=== PATIENT | female | born 1960 | race Caucasian/White ===

== ENCOUNTER → 2016-05-09 15:32 | Outpatient (CLI) | payer OTHER ==
[~2016-05-09 15:32] MED LIST: HYDROCODONE-APA1 TAB PO; PLAVIX75 MG PO; PRAVACHOL20 MG PO; TOPROL XL25 MG PO
[2016-06-23 01:34] VITALS: BMI 38.1
== END | disposition home or self-care (01) ==
LOC: D.MRI 10:30
DX: M25.572 Pain in left ankle and joints of left foot (principal)

== ENCOUNTER 2016-06-22 16:26 | Inpatient (IN) | payer OTHER ==
[~2016-06-22] VITALS: Ht 160 cm; Wt 106.8 kg
--- NOTE | ~2016-06-22 | HEMODYNAMI ---
PATIENT:MEL POTTS MEDICAL RECORD: [id number] : 58 LOCATION[facility] D.[address] [facility] [id number] ADMISSION DATE: 06/22/16 Generatedon:06/23/201610:13 Patient name: MEL POTTS Patient #: [id number] SSN: DO B: 1960 Date of study: 06/23/2016 Page: Of Hemodynamic Procedure Report Patient Data Patient Demographics Procedure consent was obtained First Name: MEL Gender: Female Last Name: DELROY : 1960 [facility] Initial: YOMAIRA VENCES Age: 56 year(s) Patient #: [id number] Race: Unknown Additional ID: [id number] Contact details [address]: [address] [place] [address] ROAD State: [place] City: [place] Zip code: [address] Past Medical History Allergies: No known allergies Admission Admission Data Admission Date: 06/22/2016 Admission Time: 18:10 Admit Source: Emergency Insurance Payor: Private department health insurance Room #: D.2123 Height (in.): 63 BSA: 1.99 (m2) Height (cm.): 160.02 BMI: 38.09 (kg/m2) Weight (lbs.): 215 Weight (kg.): 97.52 Lab Results Lab Result Date: 06/22/2016 Lab Result Time: 5:00 Biochemistry Name Units Result Min Max BUN mg/dl 8 --(*---)-- 7 18 Creatinine mg/dl 0.7 --(*---)-- 0.6 1.3 CBC Name Units Result Min Max Hematocrit % 43.2 --(*---)-- 42 54 Hemoglobin g/dl 14 --(*---)-- 13.5 17.5 Procedure Procedure Types Cath Procedure Diagnostic Procedure [facility] w/Coronaries PCI Procedure Coronary Stent Initial Miscellaneous Procedures Moderate Sedation up to 15 minutes Procedure Description Procedure Date Procedure Date: 06/23/2016 Procedure Start Time: 9:58 Procedure End Time: 10:13 Procedure Staff Name Function Ric Sen MD Performing Physician Isi Rocha RT Scrub Aki Anguiano RN Nurse Javan Muller RT Monitor Procedure Data Cath Procedure Fluoroscopy Diagnostic fluoroscopy Total fluoroscopy dose: 292 dose: 292 mGy mGy Contrast Material Contrast Material Type Amount (ml) Isovue 300 59 Entry Location Entry Primary Successful Side Size Upsize Upsize Entry Closure Succes sful Closure Location (Fr) 1 (Fr) 2 (Fr) Remarks Device Remarks Femoral Right 5 Fr 6 Fr Exoseal artery Short Estimated blood loss: 10 ml Diagnostic catheters Device Type Used For End Catheter Placement Cordis 5Fr Pigtail Procedure Catheter (MP) Cordis 5Fr JL 4.0 Procedure Catheter (MP) Cordis 5Fr 3DRC Catheter Procedure (MP) Procedure Complications No complications Procedure Medications Medication Administration Route Dosage Oxygen NC 2 l/min Heparin Flush Bag added to field 2 bags (1000units/500ml NS) 0.9% NaCl I.V. 100 ml/hr Benadryl I.V. 50 mg Fentanyl I.V. 50 mcg Versed I.V. 1 mg Fentanyl I.V. 50 mcg Versed I.V. 1 mg Heparin Bolus I.V. 4000 units Plavix P.O. 75 mg Hemodynamics Rest BSA: 1.99 (m2) HGB: 14 (g/dl) O2 Consumption: Estimated: 193.48 (ml/min) O2 Cons umption indexed: Estimated:97.23 (ml/min/m) Heart Rate: 74 (bpm) Snapshots Pre Cath Intra NCS Post Cath Vital Signs Time Heart Resp SPO2 etCO2 KI0tscf NIBP (mmHg) Rhythm Pain Sedation Rate (ipm) (%) (mmHg) (mmHg) Status Level (bpm) 9:49:03 71 21 96 0 0 117/80(98) NSR 0 (11) 10(A) , No pain 9:53:13 72 20 93 0 0 120/77(101) NSR 0 (11) 10(A) , No pain 9:57:19 71 17 94 0 0 114/77(96) NSR 0 (11) 10(A) , No pain 10:01:29 79 18 95 0 0 116/72(91) NSR 0 (11) 9(A) , No pain 10:05:35 83 18 95 0 0 122/75(105) NSR 0 (11) 9(A) , No pain 10:09:44 84 18 94 0 0 107/63(89) NSR 0 (11) 10(A) , No pain Medications Time Medication Route Dose Verified Delivered Reason Notes Effectiveness by by 9:51:16 Oxygen NC 2 Aki Aki Per physician l/min Silvio Anguiano RN RN 9:51:28 Heparin Flush added 2 Aki Aki used for Bag to bags Silvio Anguiano RN procedure (1000units/500ml field RN NS) 9:51:42 0.9% NaCl I.V. 100 Aki Aki Per physician ml/hr Silvio Anguiano RN RN 9:52:06 Benadryl I.V. 50 mg Aki Aki Per physician Silvio Anguiano RN RN 9:57:39 Fentanyl I.V. 50 Aki Aki for sedation mcg Silvio Anguiano RN RN 9:57:47 Versed I.V. 1 mg Aki Aki for sedation Silvio Anguiano RN RN 10:02:31 Fentanyl I.V. 50 Aki Aki for sedation mcg Silvio Anguiano RN RN 10:02:35 Versed I.V. 1 mg Aki Aki for sedation Silvio Anguiano RN RN 10:02:56 Heparin Bolus I.V. 4000 Aki Aki for units Silvio Anguiano RN anticoagulation RN 10:08:52 Plavix P.O. 75 mg Aki Aki for Silvio Anguiano RN antiplatelet RN therapy Procedure Log Time Note 9:22:40 Informed consent obtained and on chart 9:23:14 ACC Patient presents with Unstable Angina CCS Anginal Class 3--Marked limitation of physical activity, angina occurs with ordinary activity.. 9:23:22 Aki Anguiano RN sent for patient. Start room use. 9:23:58 Time tracking: Regular hours 9:24:02 Plan of Care:Hemodynamics will remain stable., Cardiac rhythm will remain stable., Comfort level will be maintained., Respiratory function will remain adequate., Patient/ family verbilizes understanding of procedure., Procedure tolerated without complication., Recovers from procedure without complications.. 9:24:59 Lab Result : Creatinine 0.7 mg/dl 9:24:59 Lab Result : BUN 8 mg/dl 9:24:59 Lab Result : Hemoglobin 14 g/dl 9:24:59 Lab Result : Hematocrit 43.2 % 9:25:06 Lab results completed and on chart. 9:41:07 Patient received from PCU to CCL 1 Alert and oriented. Tansferred to table in Supine position. 9:41:08 Warm blankets applied, and jaime hugger turned on for patient comfort. 9:41:09 Correct patient and procedure confirmed by team. 9:41:10 ECG and BP/O2 sat monitors applied to patient. 9:41:11 Full Disclosure recording started 9:48:03 Vital chart was started 9:51:16 Oxygen 2 l/min NC was given by Aki Anguiano RN; Per physician; 9:51:28 Heparin Flush Bag (1000units/500ml NS) 2 bags added to field was given by Aki Anguiano RN; used for procedure; 9:51:42 0.9% NaCl 100 ml/hr I.V. was given by Aki Anguiano RN; Per physician; 9:52:06 Benadryl 50 mg I.V. was given by Aki Anguiano RN; Per physician; 9:52:24 Baseline sample Acquired. 9:52:27 Rhythm: sinus rhythm 9:53:48 H&P Date Dictated: 06/22/2016 Within 30 days and on chart.. 9:53:49 Pre-procedure instructions explained to patient. 9:53:50 Pre-op teaching completed and patient verbalized understanding. 9:53:51 Family in patients room. 9:53:52 Patient NPO since Midnight. 9:53:58 Patient allergic to No known allergies 9:54:01 Is the patient allergic to Iodine/contrast media? No. 9:54:21 Was the patient premedicated? No 9:54:22 Is patient on blood thinner?Yes 9:54:26 ACC The patient was administered the following blood thiners within the last 24 hours: ACCPlavix 9:54:29 Patient diabetic? No. 9:54:42 Previous problem with sedation/anesthesia? No ? 9:54:43 Snore? Yes 9:54:44 Sleep apnea? No 9:54:46 Deviated septum? No 9:54:48 Opens mouth fully? No 9:54:49 Sticks out tongue? Yes 9:54:51 Airway obstruction? No ? 9:54:55 Dentures? Yes in tight 9:54:59 Modified Christopher's test Ulnar > 7 seconds. 9:55:01 Patient pain scale 0/10 ?. 9:55:34 IV patent on arrival in left antecubital with 0.9% NaCl at [facility]. 9:55:42 Right groin area was prepped with chlora-prep and draped in sterile fashion 9:55:42 Alarms reviewed by R. N. 9:55:43 Sharps counted by scrub and verified by R.N. 9:55:46 Use device set Femoral Dx 9:55:47 Tegaderm 4 x 4 opened to sterile field. 9:55:49 Acist Syringe opened to sterile field. 9:55:50 Bag Decanter opened to sterile field. 9:55:50 Medline Cath Pack opened to sterile field. 9:55:51 Terumo 5Fr [place] Sheath opened to sterile field. 9:55:52 Diagnostic Infinity 5Fr Multipack catheter opened to sterile field. 9:55:53 Acist Manifold opened to sterile field. 9:55:53 Acist Hand Control opened to sterile field. 9:55:54 St Ryan 260cm J .035 wire opened to sterile field. 9:56:08 Physician arrived 9:56:08 --------ALL STOP TIME OUT------ 9:56:09 Final Timeout: patient, procedure, and site verified with staff and physician. All members of the team are in agreement. 9:56:11 Right groin site verified by team. 9:56:14 Physical assessment completed. ASA score P 2 - A patient with mild systemic disease as per Ric Sen MD. 9:57:39 Fentanyl 50 mcg I.V. was given by Aki Anguiano RN; for sedation; 9:57:47 Versed 1 mg I.V. was given by Aki Anguiano RN; for sedation; 9:58:39 Procedure started. 9:58:41 Local anesthetic to right femoral artery with Lidocaine 2% by Ric Sen MD.INITIAL ACCESS ONLY 9:58:47 Zero performed for pressure channel P1 9:59:01 A 5 Fr sheath was inserted into the Right Femoral artery 9:59:09 A Cordis 5Fr Pigtail Catheter (MP) was advanced over the wire and used for Procedure. 9:59:46 LV gram done using CHILD 9:59:49 Injector settings: Ml/sec: 10, Volume: 20, 9:59:52 EF : 60 % 9:59:54 Catheter exchanged over wire. 9:59:59 A Cordis 5Fr JL 4.0 Catheter (MP) was advanced over the wire and used for Procedure. 10:00:00 LCA angiography performed. 10:00:34 Terumo 6Fr [place] Sheath opened to sterile field. 10:00:34 Kahn Whisper J 300cm 0.014 guide wire opened to sterile field. 10:00:35 EdlogicsixCompak Inflation Kit opened to sterile field. 10:00:49 Catheter exchanged over wire. 10:00:53 A Cordis 5Fr 3DRC Catheter (MP) was advanced over the wire and used for Procedure. 10:01:28 RCA angiography performed. 10::44 Cordis 6FR XBLAD 3.5 guide catheter opened to sterile field. 10::46 Catheter removed. 10:02:03 Sheath upsized to a 6 Fr Short. 10:02:07 6 Fr xblad 3.5 guide catheter was inserted over the wire 10:02:31 Fentanyl 50 mcg I.V. was given by Aki Anguiano RN; for sedation; 10:02:35 Versed 1 mg I.V. was given by Aki Anguiano RN; for sedation; 10:02:40 whisper wire advanced. 10:02:56 Heparin Bolus 4000 units I.V. was given by Aki Anguiano RN; for anticoagulation; 10:04:05 Wire advanced across lesion. 10:04:27 Inflation Number: 1 A Medtronic Integrity 2.5 x 14 stent was prepped and advanced across the Prox CX. The stent was deployed at 13 JEANA for 0:10 (min:sec). 10:04:48 ACC Post-intervention YANIQUE Flow is 3. 10:04:49 Stent catheter was removed intact over wire. 10:04:49 Wire removed. 10:04:49 Guide catheter removed. 10:05:34 Cordis 6Fr Exoseal opened to sterile field. 10:05:44 Sheath removed intact; hemostasis achieved with Exoseal to the Right Femoral artery. 10:05:46 Procedure ended.(Physican Out) 10:08:52 Plavix 75 mg P.O. was given by Aki Anguiano RN; for antiplatelet therapy; 10:10:20 Admit Source: Emergency department 10:10:50 Insurance Payor : Private health insurance 10:10:59 Patient Weight : 215 lbs 10:11:01 Patient Height : 63 inches 10:11:28 Fluoroscopy dose: 292 mGy 10:11:28 Flurop Dose total: 292 10:11:31 Contrast amount:Isovue 300 59ml. 10:11:32 Sharps counted by scrub and verified by R.N. 10:11:34 Insertion/operative site no bleeding no hematoma. 10:11:36 Post-op/insertion site Right Femoral artery dressed using a 4 x 4 and Tegaderm. 10:11:40 Post right femoral artery:stable, soft, clean and dry 10:12:01 Post Procedure Pulses reassessed and unchanged 10:12:07 Post-procedure physical assessment completed. ASA score P 2 - A patient with mild systemic disease as per Ric Sen MD. 10:12:25 Post procedure rhythm: unchanged. 10:12:28 Estimated blood loss: 10 ml 10:12:30 Post procedure instruction explained to patient.Patient verbalizes understanding. 10:12:30 Patient needs reinforcement of post procedure teaching. 10:12:46 Procedure type changed to Cath procedure, Diagnostic procedure, LHC, LHC w/Coronaries, PCI procedure, Coronary Stent Initial, Miscellaneous Procedures, Moderate Sedation up to 15 minutes 10:13:10 Procedure and supply charges have been captured, reviewed, submitted and are correct. 10:13:12 Procedure Complication : No complications 10:13:14 Vital chart was stopped 10:13:14 See physician's report for complete and final results. 10:13:15 Report given to PCU. 10:13:18 Patient transfered to PCU with Stretcher. 10:13:20 Procedure ended. 10:13:20 Full Disclosure recording stopped 10:13:31 ACC-PCI Only Patient was given prescriptions, or instructed by Ric Sen MD to start/continue the following medications upon discharge: Plavix 10:13:32 End room use (Document Last) Intervention Summary Intervention Notes Time ActionType Lesion and Equipment Action# Pressure Duration Attributes Used 10:04:27 Place stent Prox CX Medtronic 1 13 00:10 Integrity 2.5 x 14 stent Device Usage Item Name Manufacture Quantity Catalog Hospital Part Current Minimal L ot# / Number Charge Number Stock Stock Serial# Code Tegaderm 4 3M 1 [id number] 034142 [id number] 5 x 4 Acist Acist 1 38992 369192 384849 970472 20 Syringe Medical Systems Inc Bag Microtek 1 2002S 012018 44971 741168 5 [employer] Medline Cardinal 1 [id number] 591877 11456 549421 5 Cath Pack Health Terumo 5Fr Terumo 1 [id number] 708164 070746 460449 40 [place] Sheath Diagnostic Cardinal 1 [id number] 351648 38165 285127 30 Infinity Health 5Fr Multipack catheter Acist Acist 1 80124 955944 922392 823900 5 Manifold Medical Systems Inc Acist Hand Acist 1 42633 236114 233549 346987 [address] Ryan St Ryan 1 098492 333729 168962 869820 30 260cm J .035 wire Cordis 5Fr Cardinal 1 548046 5 Pigtail Health Catheter (MP) Cordis 5Fr Cardinal 1 063073 5 JL 4.0 Health Catheter (MP) Terumo 6Fr Terumo 1 JOJ169 946558 960812 511439 40 [place] Sheath Kahn Kahn 1 [id number] 449014 099121 290481 5 Whisper J Vascular 300cm 0.014 guide wire Merit Merit 1 [id number] 915328 580029 186618 15 [facility] Medical Inflation Kit Cordis 5Fr Cardinal 1 335492 5 3DRC Health Catheter (MP) Cordis 6FR Cardinal 1 [id number] 292882 570765 991751 10 XBLAD 3.5 Health guide catheter Medtronic Medtronic 1 [id number] 462306 982971 1 0 [id number] Integrity 2.5 x 14 stent Cordis 6Fr Cardinal 1 EX600 845819 715823 637568 10 [employer] Signature Audit Gormania Stage Time Signature Unsigned Intra-Procedure 06/23/2016 Javan Muller 10:13:42 AM RT(R) Signatures Monitor : Javan Muller RT Signature : Date : Time : [id number] [place] [address]
[2016-06-22 17:13] LABS: BASOPHILS 0.3 % (0.0-2.0); EOSINOPHILS 5.6 % (0-7); HEMATOCRIT 43.2 % (36.0-48.0); IMMATURE GRANULOCYTES 0.4 % (0-5); LYMPHOCYTES 22.5 % (15-50); MCH 27.6 pg (26.0-34.0); MCHC 32.4 g/dL (31.0-37.0); MCV 85.2 fL (80.0-100.0); MEAN PLATELET VOLUME 10.6 fL (7.4-10.4); MONOCYTES 6.2 % (2-11); PLATELET COUNT 279 10x3/uL (130-400); RBC 5.07 10x6/uL (4.00-5.40); RDW 15.4 % (11.5-14.5); WBC 10.5 10x3/uL (4.8-10.8)
[2016-06-22 17:29] LABS: ALBUMIN 3.2 g/dL (3.4-5.0); ALKALINE PHOSPHATASE 86 U/L (46-116); ALT (SGPT) 28 U/L (10-68); BILIRUBIN - TOTAL 0.28 mg/dL (0.2-1.3); CALC OSMOLALITY 271 mosm/kg (275-300); CALCIUM 9.1 mg/dL (8.5-10.1); CARBON DIOXIDE 30.9 mmol/L (21.0-32.0); CHLORIDE - SERUM 99 mmol/L (98-107); CREATININE - SERUM 0.7 mg/dL (0.6-1.3); GLUCOSE 100 mg/dL (74-106); POTASSIUM - SERUM 4.2 mmol/L (3.5-5.1); PROTEIN - SERUM 7.6 g/dL (6.4-8.2); SODIUM 137 mmol/L (136-145); UREA NITROGEN 8 mg/dL (7-18); eGFR NON AFRICAN AMERICAN > 90 mL/min (90-120)
[2016-06-22 17:45] LABS: CHOL - HDL RATIO 3.9 ratio (2.3-4.1); CHOLESTEROL, TOTAL 208 mg/dL (0-200); CKMB 2.8 U/L (0.0-3.6); CREATINE KINASE 92 UL (21-215); HDL CHOLESTEROL 53 mg/dL (32-96); LDL CHOLESTEROL 135 mg/dL (0-100); LDL-HDL RATIO 2.5 ratio (1.5-3.5); TRIGLYCERIDE 103 mg/dL (30-200)
[2016-06-22 17:52] LABS: TROPONIN-I 0.488 ng/mL (0.000-0.060)
[2016-06-22 20:00] VITALS: BP 131/90
--- NOTE | 2016-06-22 20:30 | NUR ---
ADMIT TO ROOM 2123 FROM ER. ACCOMPANIED BY SPOUSE AND SONS X 2. ALERT/ORIENTED. NO CURRENT CHEST PAIN. TELEMETRY INITIATED. REVIEWED PLAN OF CARE. ADMISSION HISTORY AND ASSESSMENT COMPLETED. HOME MEDS REVIEWED. CALL LIGHT IN REACH.
[2016-06-22] MEDS ORDERED: HYDROCODONE-APA1 TAB PO (20:33)
--- NOTE | 2016-06-22 22:00 | NUR ---
PT AND BOTH VERY UPSET THAT THEY CANNOT GO OUTSIDE TO SMOKE. EXPLAINED THAT THIS IS A NON-SMOKING CAMPUS PER [place] LAW AND THAT THE SECURITY GAURDS DO ENFORCE THIS. SPOUSE IS VERY UPSET, SAYING A YEAR AGO HE WAS A PATIENT AND HE SMOKED OUTSIDE "ALL THE TIME". CALMED PT AND SPOUSE DOWN. PAGE TO DR POWELL, REPORTED THAT PT IS A VERY HEAVY SMOKER AND IS UPSET ABOUT NOT BEING ABLE TO SMOKE. RECEIVED ORDER FOR A NICOTINE 21MG PATCH AND ATIVAN FOR RESTLESSNESS AND ANXIETY. NOTIFIED SPORTS PSYCHOLOGIST THAT NICOTINE PATCH WAS ORDERED AND NEEDED.
--- NOTE | 2016-06-22 22:55 | NUR ---
ALSO INITIATED D5NS @ 125ML/HR TO RIGHT A/C.
--- NOTE | 2016-06-22 23:55 | NUR ---
PT C/O CHEST PRESSURE. SR PER TELEMETRY. ADMINISTERED MORPHINE 4MG SIVP AND ZOFRAN 4MG SIVP AT THIS TIME. WILL MONITOR.
[2016-06-23] VITALS (8 sets, daily range): BP systolic 115–131; BP diastolic 71–90; Ht 160 cm; Wt 106.8 kg
--- NOTE | 2016-06-23 00:50 | NUR ---
NICOTINE PATCH OBTAINED FROM TEST ADMINISTRATOR. APPLIED PATCH TO PATIENT AT THIS TIME.
--- NOTE | 2016-06-23 02:45 | NUR ---
PT RESTLESS, MEDICATED WITH ATIVAN 1MG SIVP. SR PER TELEMETRY. IVF INFUSING. CPOC.
--- NOTE | 2016-06-23 06:46 | NUR ---
RESTING WITH NO DISTRESS. IVF INFUSING. NPO TIL SEEN BY ENGINE DESIGNER.
--- NOTE | 2016-06-23 07:30 | NUR ---
RECEIVED PT IN BED AAOX4 RESP UNLABRED DENIES ANY NEEDS OR DISCOMFORT NAD NOTED
[2016-06-23 09:35] LABS: BASOPHILS 0.5 % (0.0-2.0); EOSINOPHILS 7.8 % (0-7); HEMATOCRIT 41.4 % (36.0-48.0); HEMOGLOBIN 13.1 g/dL (12-16); IMMATURE GRANULOCYTES 0.3 % (0-5); MCH 27.6 pg (26.0-34.0); MCHC 31.6 g/dL (31.0-37.0); MONOCYTES 7.8 % (2-11); NEUTROPHILS 51.6 % (40-80); PLATELET COUNT 249 10x3/uL (130-400); RBC 4.74 10x6/uL (4.00-5.40); RDW 15.8 % (11.5-14.5)
[2016-06-23 09:39] LABS: CALC OSMOLALITY 277 mosm/kg (275-300); CALCIUM 8.8 mg/dL (8.5-10.1); CARBON DIOXIDE 27.8 mmol/L (21.0-32.0); CHLORIDE - SERUM 103 mmol/L (98-107); CREATININE - SERUM 0.7 mg/dL (0.6-1.3); GLUCOSE 117 mg/dL (74-106); SODIUM 139 mmol/L (136-145); UREA NITROGEN 9 mg/dL (7-18); eGFR NON AFRICAN AMERICAN > 90 mL/min (90-120)
--- NOTE | 2016-06-23 09:40 | NUR ---
PT TO AREA FIELD PERSON VIA BED NAD NOTED
[2016-06-23 09:41] LABS: MCV 87.3 fL (80.0-100.0); WBC 7.7 10x3/uL (4.8-10.8)
--- NOTE | 2016-06-23 10:25 | NUR ---
RECEIVED PT BACK TO ROOM VIA BED IN STABLE CONDITION VSS WILL CONT TO MONITOR
[2016-06-23] MEDS ORDERED: TOPROL XL25 MG PO (10:39)
[2016-06-23] MEDS ORDERED: PRAVACHOL20 MG PO (10:39)
[2016-06-23] MEDS ORDERED: PLAVIX75 MG PO (10:39)
--- NOTE | 2016-06-23 14:55 | NUR ---
REVIEWED DISCHARGE INSTRUCTIONS WITH PT STATES UNDERSTANDING COPY GIVEN PT DCD SALINE LOCK TO RAC WITH 20 GA IV CATH INTACT SITE FREE OR REDNESS OR EDEMA DISCHARGED HOME LEFT UNIT IN STABLE CONDITION WITH ALL PERSONAL BELONGINGS VIA W/C
--- NOTE | 2016-06-25 10:09 | DS ---
PATIENT:MEL POTTS :58 MEDICAL RECORD: [id number] DISCHARGE SUMMARY ADMISSION DATE: 06/22/16 DISCHARGE DATE: 06/23/16 DIAGNOSES: 1. Non-Q-wave myocardial infarction. 2. Percutaneous transluminal coronary angioplasty stent left circumflex this admission. HOSPITAL COURSE: Ms. Potts presents with a non-Q-wave myocardial infarction and underwent cardiac catheterization revealing 99% stenosis to the left circumflex, underwent successful PTCA stent of this territory. He had an uneventful postop course. He was discharged home with the addition of aspirin, Plavix, Pravachol, Toprol to her medical regimen. We will follow up with [facility] in 1 month. TRANSINT:[id number] Voice Confirmation ID: [id number] DOCUMENT ID: [id number] FLORINA POWELL MD at 1009 CC: [id number] DICTATION DATE: 06/23/16 1010 PHARMACY TECHNICIAN INFUSION: 06/23/16 2321 DIS IN 06/23/16 [facility] [address] [place] [address]
--- NOTE | 2016-06-25 10:09 | OP ---
PATIENT NAME: MEL POTTS MEDICAL RECORD: [id number] :58 LOCATION:D.M2 D.2123 ADMISSION DATE:06/22/16 SURGEON: FLORINA POWELL MD DATE OF OPERATION: 06/23/2016 PROCEDURES: 1. PTCA stent left circumflex. 2. Left heart catheterization. 3. Selective coronary angiography. 4. Left ventriculogram. INDICATION: Non-Q-wave myocardial infarction. PROCEDURE IN DETAIL: After informed consent was obtained and after detailed explanation of risks, benefits as well as alternative therapies, the patient elected to proceed with angiogram and angioplasty. The right femoral area was prepped and draped in normal sterile fashion. The right femoral artery was cannulated via modified Seldinger technique with placement of 6-Greenlandic sheath. All catheters exchanged through this sheath. FINDINGS: The left ventriculogram was performed in standard 30-degree CHILD view, reveals good cardiac wall motion throughout all segments. Overall ejection fraction estimated 60%. SELECTIVE CORONARY ANGIOGRAPHY: 1. Left main has no significant angiographic disease. 2. Left anterior descending has moderate irregularities, but no flow-limiting stenosis. 3. The left circumflex has 99% stenosis proximally, otherwise only mild irregularities. 4. The right coronary has moderate irregularities, but no flow-limiting stenosis. PTCA STENT OF THE LEFT CIRCUMFLEX: The stent used is a 2.5 x 14 mm Integrity. Result was 0% residual stenosis. OVERALL IMPRESSION: Successful percutaneous transluminal coronary angioplasty stent of the left circumflex going from 99% initial stenosis to 0% residual. TRANSINT:[id number] Voice Confirmation ID: [id number] DOCUMENT ID: [id number] FLORINA POWELL MD at 1009 CC: [id number] DICTATION DATE: 06/23/16 1011 FUR GRADER: 06/23/16 1733 DIS IN 06/23/16 [id number] [place] [address]
--- NOTE | 2016-06-25 10:09 | HP ---
PATIENT: MEL POTTS MEDICAL RECORD: [id number] ACCOUNT: [id number] LOCATION:.[facility] : 58 ADMISSION DATE: 06/22/16 HISTORY AND PHYSICAL EXAMINATION DIAGNOSES: 1. Non-Q-wave myocardial infarction. 2. Smoking history. HISTORY OF PRESENT ILLNESS: Mrs. Potts presents with 2 weeks of increasing chest pain, chest discomfort that is severe yesterday. Troponin is positive for a myocardial infarction. She still has minor chest pain. PHYSICAL EXAMINATION: GENERAL APPEARANCE: Well-nourished, well-developed, appears stated age. Level of distress, comfortable. PSYCHIATRIC: Mental status, alert, normal affect. Orientation, oriented to time, place and person. EYES: Lids and conjunctiva, noninjected. No discharge, no pallor. ENT: Lips, teeth, gums, normal dentition. Oropharynx, no cyanosis, no pallor. NECK: Carotid arteries, bilateral normal upstroke, no bruits, no thrills. JUGULAR VEINS: No jugular venous pressure or distention. CERVICAL LYMPH NODES: Nontender, nonenlarged. THYROID: Not enlarged. Nontender. No nodules. LUNGS: Respiratory effort, unlabored. CHEST: Normal curvature. No thoracic deformity. No chest wall tenderness. Percussion, resonant. Auscultation, clear. No wheezes, no rales, no rhonchi. CARDIOVASCULAR: Precordial exam, nondisplaced. No heaves or pericardial thrills. Rate and rhythm, regular. Heart sounds, normal S1, normal S2. No S3, no gallop, no rub. Systolic murmur, not heard. Diastolic murmur, not heard. EXTREMITIES: No cyanosis, no edema. Peripheral pulses, full and equal in all extremities, except as noted. No bruits appreciated. ABDOMEN: Soft, nondistended. Normal aorta. No bruit. Nontender. No masses. Liver, nontender, no hepatomegaly. Spleen, nontender, no splenomegaly. MUSCULOSKELETAL: No joint tenderness. No joint swelling. No erythema. NEUROLOGICAL: Normal gait, normal strength, normal tone. SKIN: Warm and dry. REVIEW OF SYSTEMS: The patient reports easy bruising but reports no swollen glands. The patient reports no fever, no night sweats, no significant weight gain, no significant weight loss. No significant exercise tolerance. The patient reports no dry eyes, no irritation, no vision change. Patient reports no difficulty hearing and no ear pain. Patient reports no frequent nose bleeds or nose and sinus problems. Patient reports on arm pain on exertion. No shortness of breath while lying down. No history of heart murmur. Patient reports no cough, no wheezing or coughing up blood. Patient reports no abdominal pain, no vomiting. Normal appetite. No diarrhea and not vomiting blood. No nausea and no constipation. Patient reports no incontinence. No difficulty urinating. No hematuria. No increased frequency. Patient reports no muscle aches. No weakness, no arthralgias, no back pain. No swelling of the extremities. Patient reports no abnormal mole, no jaundice, no rashes. Reports no loss of consciousness. No weakness and no numbness. No seizures, dizziness, or headaches. The patient reports no depression, no sleep disturbance, feeling safe in a relationship and no alcohol abuse. Patient reports on fatigue. Reports no runny nose or sinus pressure. No itching, no hives, and no frequent HISTORY AND PHYSICAL [id number] MEL POTTS sneezing. OVERALL IMPRESSION: Non-Q-wave myocardial infarction. We will proceed with coronary angiography. Further care depends upon findings of the angiography. TRANSINT:[id number] Voice Confirmation ID: [id number] DOCUMENT ID: [id number] FLORINA POWELL MD at 1009 CC: [id number] DICTATION DATE: 06/23/16911 MANAGER LEAN: 06/23/1646 DIS IN 06/23/16 [id number] [place] [address]
== END 2016-06-23 14:55 | disposition home or self-care (01) | DRG 249 ==
LOC: D.ER 16:26 → D.M2 18:10
PROVIDERS: Emergency Medicine; ADMIT Internal Medicine Interventional Cardiology
PROC: B2111ZZ Fluoroscopy of Multiple Coronary Arteries using Low Osmolar Contrast (ICD-10-PCS; 2016-06-23)
PROC: B2151ZZ Fluoroscopy of Left Heart using Low Osmolar Contrast (ICD-10-PCS; 2016-06-23)
PROC: 02703DZ Dilation of Coronary Artery, One Artery with Intraluminal Device, Percutaneous Approach (ICD-10-PCS; principal; 2016-06-23 10:00)
PROC: 4A023N7 Measurement of Cardiac Sampling and Pressure, Left Heart, Percutaneous Approach (ICD-10-PCS; 2016-06-23 10:00)
DX: I21.4 Non-ST elevation (NSTEMI) myocardial infarction (principal); Z87.891 Personal history of nicotine dependence

== ENCOUNTER 2016-12-05 11:32 | Emergency (ER) | payer OTHER ==
[2016-06-23 01:34] VITALS: BMI 38.1
[2016-12-05 12:06] LABS: BASOPHILS 0 % (0-2); EOSINOPHILS 0 % (0-7); HEMATOCRIT 43.8 % (36.0-48.0); HEMOGLOBIN 13.9 g/dL (12-16); IMMATURE GRANULOCYTES 0.4 % (0-5); LYMPHOCYTES 5.7 % (15-50); MCHC 31.7 g/dL (31.0-37.0); MCV 88.3 fL (80.0-100.0); MEAN PLATELET VOLUME 10.1 fL (7.4-10.4); MONOCYTES 2.6 % (2-11); NEUTROPHILS 91.3 % (40-80); PLATELET COUNT 224 10x3/uL (130-400); RBC 4.96 10x6/uL (4.00-5.40); RDW 17.4 % (11.5-14.5); WBC 12.3 10x3/uL (4.8-10.8)
[2016-12-05 12:22] LABS: ALBUMIN 2.9 g/dL (3.4-5.0); ALKALINE PHOSPHATASE 88 U/L (46-116); ALT (SGPT) 52 U/L (10-68); CALC OSMOLALITY 286 mosm/kg (275-300); CALCIUM 8.7 mg/dL (8.5-10.1); CARBON DIOXIDE 33.2 mmol/L (21.0-32.0); CHLORIDE - SERUM 102 mmol/L (98-107); CREATININE - SERUM 0.8 mg/dL (0.6-1.3); POTASSIUM - SERUM 4.2 mmol/L (3.5-5.1); PROTEIN - SERUM 6.7 g/dL (6.4-8.2); SODIUM 140 mmol/L (136-145); UREA NITROGEN 21 mg/dL (7-18); eGFR NON AFRICAN AMERICAN 78 mL/min (90-120)
[2016-12-05 12:24] LABS: GLUCOSE 185 mg/dL (74-106)
[2016-12-05 12:32] LABS: CHOL - HDL RATIO 2.2 ratio (2.3-4.1); CHOLESTEROL, TOTAL 209 mg/dL (0-200); CKMB 0.9 U/L (0.0-3.6); CREATINE KINASE 50 UL (21-215); HDL CHOLESTEROL 94 mg/dL (32-96); LDL CHOLESTEROL 100 mg/dL (0-100); LDL-HDL RATIO 1.1 ratio (1.5-3.5); TRIGLYCERIDE 75 mg/dL (30-200); TROPONIN-I < 0.017 ng/mL (0.000-0.060)
[2016-12-05 13:16] LABS: UDS - AMPHET NEGATIVE QUAL (NEGATIVE); UDS - BARB NEGATIVE QUAL (NEGATIVE); UDS - BENZO NEGATIVE QUAL (NEGATIVE); UDS - COCAINE NEGATIVE QUAL (NEGATIVE); UDS - METH NEGATIVE QUAL (NEGATIVE); UDS - OPIATE POSITIVE QUAL (NEGATIVE); UDS - PCP NEGATIVE QUAL (NEGATIVE); UDS - THC POSITIVE QUAL (NEGATIVE)
[2016-12-05 13:22] LABS: AMORPHOUS SEDIMENT <1+ /lpf (NONE SEEN); APPEARANCE SLT CLOUDY (CLEAR); BACTERIA MODERATE /hpf (NONE SEEN); BILIRUBIN NEGATIVE (NEGATIVE); COLOR YELLOW (YELLOW); EPITHELIAL CELLS 0-5 /hpf (0-5); GLUCOSE 100 mg/dL (NEGATIVE); KETONE NEGATIVE (NEGATIVE); LEUKOCYTE ESTERASE TRACE (NEGATIVE); MUCUS <1+ /lpf (NONE SEEN); NITRITE NEGATIVE (NEGATIVE); PROTEIN NEGATIVE (NEGATIVE); RED CELLS - URINE RARE /hpf (0-5); WHITE CELLS - URINE OCC /hpf (0-5)
[2016-12-05 15:03] LABS: INR 0.86 (0.85-1.17); PROTIME 11.6 SECONDS (11.6-15.0)
[2016-12-05 15:05] LABS: D-DIMER-QUANTITATIVE < 0.27 ug/mLFEU (0.20-0.54)
== END 2016-12-05 19:25 | disposition home or self-care (01) ==
LOC: D.ER 11:32
PROVIDERS: Emergency Medicine; Nurse Practitioner Family
DX: J40 Bronchitis, not specified as acute or chronic (principal); R06.02 Shortness of breath; E66.9 Obesity, unspecified; I10 Essential (primary) hypertension; F17.200 Nicotine dependence, unspecified, uncomplicated; R05 Cough; R09.89 Other specified symptoms and signs involving the circulatory and respiratory systems

== ENCOUNTER 2017-02-01 11:01 | Emergency (ER) | payer OTHER ==
[2016-06-23 01:34] VITALS: BMI 38.1
[2017-02-01 11:27] LABS: BASOPHILS 0.4 % (0-2); EOSINOPHILS 7.2 % (0-7); HEMATOCRIT 36.9 % (36.0-48.0); HEMOGLOBIN 11.9 g/dL (12-16); IMMATURE GRANULOCYTES 0.3 % (0-5); LYMPHOCYTES 28.8 % (15-50); MCH 28.3 pg (26.0-34.0); MCHC 32.2 g/dL (31.0-37.0); MCV 87.6 fL (80.0-100.0); MONOCYTES 4.6 % (2-11); NEUTROPHILS 58.7 % (40-80); RBC 4.21 10x6/uL (4.00-5.40); RDW 16.8 % (11.5-14.5); WBC 10.6 10x3/uL (4.8-10.8)
[2017-02-01 11:32] LABS: PLATELET COUNT 298 10x3/uL (130-400)
[2017-02-01 11:40] LABS: INR 1.02 (0.85-1.17); PROTIME 13.2 SECONDS (11.6-15.0)
[2017-02-01 11:41] LABS: APTT 26.2 SECONDS (22.8-39.4)
[2017-02-01 11:43] LABS: ALBUMIN 2.9 g/dL (3.4-5.0); ALKALINE PHOSPHATASE 81 U/L (46-116); ALT (SGPT) 16 U/L (10-68); CALC OSMOLALITY 274 mosm/kg (275-300); CALCIUM 9.1 mg/dL (8.5-10.1); CARBON DIOXIDE 31.7 mmol/L (21.0-32.0); CHLORIDE - SERUM 101 mmol/L (98-107); CREATININE - SERUM 0.8 mg/dL (0.6-1.3); POTASSIUM - SERUM 3.8 mmol/L (3.5-5.1); PROTEIN - SERUM 7.5 g/dL (6.4-8.2); SODIUM 137 mmol/L (136-145); UREA NITROGEN 11 mg/dL (7-18); eGFR NON AFRICAN AMERICAN 78 mL/min (90-120)
[2017-02-01 11:47] LABS: GLUCOSE 135 mg/dL (74-106)
[2017-02-01 11:58] LABS: CHOLESTEROL, TOTAL 189 mg/dL (0-200); CKMB 0.2 U/L (0.0-3.6); CREATINE KINASE 47 UL (21-215); HDL CHOLESTEROL 47 mg/dL (32-96); LDL CHOLESTEROL 110 mg/dL (0-100); LDL-HDL RATIO 2.3 ratio (1.5-3.5); TRIGLYCERIDE 163 mg/dL (30-200)
[2017-02-01 12:00] LABS: TROPONIN-I < 0.017 ng/mL (0.000-0.060)
== END 2017-02-01 13:37 | disposition home or self-care (01) ==
LOC: D.ER 11:01
PROVIDERS: Family Medicine
DX: R07.89 Other chest pain (principal); M54.9 Dorsalgia, unspecified; F17.200 Nicotine dependence, unspecified, uncomplicated

== ENCOUNTER → 2017-10-21 13:07 | Outpatient (CLI) | payer OTHER ==
[2016-06-23 01:34] VITALS: BMI 38.1
== END | disposition home or self-care (01) ==
LOC: D.MRI 13:07 → D.MAMMO 15:00
DX: M54.5 Low back pain (principal)

== ENCOUNTER 2018-10-19 17:59 | Emergency (ER) | payer OTHER ==
[~2018-10-19] VITALS: Ht 160 cm; Wt 104.5 kg
[2018-10-19 18:06] VITALS: Ht 160 cm; Wt 104.5 kg
[2018-10-19] MEDS ORDERED: BAYER CHEWABLE81 MG PO (18:08)
[2018-10-19] MEDS ORDERED: TESSALON PERLE100 MG PO (18:08)
[2018-10-19] MEDS ORDERED: TREXALL7.5 MG PO (18:09)
[2018-10-19 18:35] LABS: BASOPHILS 0.2 % (0-2); EOSINOPHILS 3.3 % (0-7); HEMATOCRIT 40.6 % (36.0-48.0); HEMOGLOBIN 13.5 g/dL (12-16); IMMATURE GRANULOCYTES 0.3 % (0-5); LYMPHOCYTES 16.5 % (15-50); MCHC 33.3 g/dL (31.0-37.0); MCV 87.1 fL (80.0-100.0); MEAN PLATELET VOLUME 9.7 fL (7.4-10.4); MONOCYTES 6.2 % (2-11); NEUTROPHILS 73.5 % (40-80); RBC 4.66 10x6/uL (4.00-5.40); RDW 17.9 % (11.5-14.5); WBC 9.2 10x3/uL (4.8-10.8)
[2018-10-19 18:36] LABS: PLATELET COUNT 213 10x3/uL (130-400)
[2018-10-19 18:38] LABS: APTT 27.6 SECONDS (22.8-39.4); INR 0.93 (0.85-1.17)
[2018-10-19 18:51] LABS: ALBUMIN 3.1 g/dL (3.4-5.0); ALKALINE PHOSPHATASE 101 U/L (46-116); ALT (SGPT) 54 U/L (10-68); BILIRUBIN - TOTAL 0.32 mg/dL (0.2-1.3); CALC OSMOLALITY 273 mosm/kg (275-300); CALCIUM 8.9 mg/dL (8.5-10.1); CARBON DIOXIDE 30.7 mmol/L (21.0-32.0); CHLORIDE - SERUM 100 mmol/L (98-107); CREATININE - SERUM 0.6 mg/dL (0.6-1.3); GLUCOSE 111 mg/dL (74-106); PROTEIN - SERUM 7.1 g/dL (6.4-8.2); SODIUM 137 mmol/L (136-145); UREA NITROGEN 10 mg/dL (7-18); eGFR NON AFRICAN AMERICAN > 90 mL/min (90-120)
[2018-10-19 19:02] LABS: CKMB 0.5 U/L (0.0-3.6); CREATINE KINASE 51 UL (21-215); MAGNESIUM - SERUM 1.8 mg/dL (1.8-2.4); TROPONIN-I < 0.017 ng/mL (0.000-0.060)
[2018-10-19 20:40] VITALS: BP 108/77
== END 2018-10-19 20:40 | disposition home or self-care (01) ==
LOC: D.ER 17:59
PROVIDERS: Emergency Medicine
DX: R07.9 Chest pain, unspecified (principal)

== ENCOUNTER → 2018-10-24 08:39 | Outpatient (CLI) | payer OTHER ==
[2018-10-19 18:06] VITALS: BMI 40.8
--- NOTE | ~2018-10-24 | ST ---
PATIENT:MEL POTTS MEDICAL RECORD: [id number] SEX: F LOCATION:[facility] ORDER #: ADMISSION DATE: 10/24/18 AGE OF PATIENT: 58 REFERRING PHYSICIAN: INTERPRETING PHYSICIAN: FLORINA POWELL MD DATE OF SERVICE: 10/24/2018 Nuclear Stress Test INDICATION: Chest pain. She was exercised on standard Lexiscan protocol with 33 mCi of sestamibi injected at peak stress, 11 mCi used previously for rest images. FINDINGS: Gated SPECT reveals preserved ejection fraction at 63% with good wall motion and thickening and brightening throughout all segments. SPECT imaging Cardiolite was used as myocardial fusion agent. There is homogeneous uptake throughout all segments at rest and stress with no evidence of inducible ischemia or previous infarction. OVERALL IMPRESSION: 1. This is a normal nuclear stress test with no evidence of inducible ischemia or previous infarction. 2. Gated SPECT reveals a preserved ejection fraction at 63%. In this patient with ongoing symptomatology, the current scan does not suggest the presence of hemodynamically significant coronary artery disease. Evaluate noncardiac etiology of chest pain. TRANSINT:[id number] Voice Confirmation ID: [id number] DOCUMENT ID: [id number] FLORINA POWELL MD CC: [id number] DICTATION DATE: 10/27/18 1031 METAL MOLDER: 10/27/18 2316 DEP CLI 10/24/18 [address] [place] [address]
[~2018-10-24 08:39] MED LIST changes: +BAYER CHEWABLE81 MG PO; +TESSALON PERLE100 MG PO; +TREXALL7.5 MG PO
== END | disposition home or self-care (01) ==
LOC: D.HCCARDIO 08:39
PROVIDERS: ATTEND Internal Medicine Interventional Cardiology
DX: I25.10 Atherosclerotic heart disease of native coronary artery without angina pectoris (principal)

== ENCOUNTER 2020-09-08 13:32 | Emergency (ER) | payer OTHER ==
[~2020-09-08] VITALS: Ht 160 cm; Wt 127.3 kg
[2020-09-08 13:36] VITALS: Ht 160 cm; Wt 127.3 kg
[2020-09-08 14:00] LABS: BASOPHILS 0.7 % (0-2); EOSINOPHILS 1.6 % (0-7); HEMATOCRIT 36.3 % (36.0-48.0); HEMOGLOBIN 11.8 g/dL (12-16); LYMPHOCYTES 12.9 % (15-50); MCH 27.4 pg (26.0-34.0); MCHC 32.5 g/dL (31.0-37.0); MCV 84.3 fL (80.0-100.0); MEAN PLATELET VOLUME 7.6 fL (7.4-10.4); MONOCYTES 4.2 % (2-11); NEUTROPHILS 80.6 % (40-80); PLATELET COUNT 248 10x3/uL (130-400); WBC 9.9 10x3/uL (4.8-10.8)
[2020-09-08 14:06] LABS: CALC OSMOLALITY 276 mosm/kg (275-300); CALCIUM 8.6 mg/dL (8.5-10.1); CHLORIDE - SERUM 104 mmol/L (98-107); CREATININE - SERUM 0.9 mg/dL (0.6-1.3); GLUCOSE 125 mg/dL (74-106); SODIUM 138 mmol/L (136-145); UREA NITROGEN 13 mg/dL (7-18); eGFR NON AFRICAN AMERICAN 67 mL/min (90-120)
[2020-09-08 14:20] LABS: ALBUMIN 3.1 g/dL (3.4-5.0); ALKALINE PHOSPHATASE 110 U/L (30-120); ALT (SGPT) 44 U/L (10-68); BILIRUBIN - TOTAL 0.32 mg/dL (0.2-1.3); CKMB 0.2 U/L (0.0-3.6); CREATINE KINASE 32 UL (21-215); MAGNESIUM - SERUM 1.9 mg/dL (1.8-2.4); PROTEIN - SERUM 7.4 g/dL (6.4-8.2); TROPONIN-I < 0.017 ng/mL (0.000-0.060)
[2020-09-08 14:48] LABS: APTT 24.7 SECONDS (22.8-39.4); INR 1.01 (0.85-1.17); PROTIME 12.3 SECONDS (11.6-15.0)
[2020-09-08] MEDS ORDERED: MEDROL DOSE PACK4 MG PO (15:20)
[2020-09-08] MEDS ORDERED: MUCINEX600 MG PO (15:20)
[2020-09-08] MEDS ORDERED: ALBUTEROL SULF8.5 GM INH (15:20)
[2020-09-08 15:47] VITALS: BP 129/54
== END 2020-09-08 15:48 | disposition home or self-care (01) ==
LOC: D.ER 13:32
PROVIDERS: Emergency Medicine
DX: R07.9 Chest pain, unspecified (principal); J40 Bronchitis, not specified as acute or chronic; R06.02 Shortness of breath